=== PATIENT | male | born 1990 | race Caucasian/White ===

== ENCOUNTER 2018-12-09 09:33 | Emergency (ER) | payer BC ==
[~2018-12-09] VITALS: Ht 180.3 cm; Wt 68.0 kg
[~2018-12-09 09:33] MED LIST: ONDA8TAB6 PO
--- NOTE | 2018-12-09 09:48 | NUR ---
DARRELL LOFTON AT BEDSIDE.
[2018-12-09] MEDS ORDERED: morphine 2 MG/ML inj. syringe IV PRN (09:55)
[2018-12-09 10:00] LABS: BASOPHILS % (AUTO) 0.8 % (0-1); EOSINOPHILS % (AUTO) 0.3 % (0-6); HEMATOCRIT 49.2 % (42.0-52.0); LYMPHOCYTES # (AUTO) 1.9 X10'3 (1.1-4.8); LYMPHOCYTES % (AUTO) 32.3 % (21-51); MEAN CORPUSCULAR HEMOGLOBIN 31.1 PG (27.0-31.0); MEAN CORPUSCULAR HGB CONC 34.6 g/dL (33.0-36.5); MEAN CORPUSCULAR VOLUME 90.1 FL (78-98); MEAN PLATELET VOLUME 8.7 FL (7.4-10.4); MONOCYTES # (AUTO) 0.4 X10'3 (0-0.9); MONOCYTES % (AUTO) 6.2 % (2-12); NEUTROPHILS # (AUTO) 3.5 X10'3 (1.8-7.7); NEUTROPHILS % (AUTO) 60.4 % (42-75); PLATELET COUNT 259 X10'3 (140-440); RED BLOOD COUNT 5.47 X10'6 (4.70-6.10); RED CELL DISTRIBUTION WIDTH 12.9 % (11.5-14.5); WHITE BLOOD COUNT 5.8 X10'3 (4.5-11.0)
[2018-12-09 10:12] LABS: ALANINE AMINOTRANSFERASE 52 U/L (12-78); ALBUMIN 4.9 G/DL (3.4-5.0); ALBUMIN/GLOBULIN RATIO 1.2 (1.1-1.5); ALKALINE PHOSPHATASE 113 IU/L (46-116); ANION GAP 9 (8-16); ASPARTATE AMINO TRANSFERASE 25 U/L (10-37); BILIRUBIN,TOTAL 0.8 MG/DL (0.1-1.0); BLOOD UREA NITROGEN 18 MG/DL (7-18); BUN/CREATININE RATIO 16.1 (5.4-32.0); CALCIUM 9.7 MG/DL (8.5-10.1); CHLORIDE 105 MMOL/L (99-107); CREATININE 1.12 MG/DL (0.60-1.10); GLUCOSE 84 MG/DL (70-104); POTASSIUM 4.5 MMOL/L (3.5-5.1); SODIUM 143 MMOL/L (135-145); TOTAL PROTEIN 8.9 G/DL (6.4-8.2); eGFR 78 ML/MIN
[2018-12-09 10:18] LABS: LIPASE 147 U/L (73-393); MAGNESIUM 2.1 MG/DL (1.5-2.4)
--- NOTE | 2018-12-09 10:28 | NUR ---
PT STATES HE CANNOT GIVE URINE, HAS NOT BEEN EATING OR DRINKING MUCH, REFUSES CATH
[2018-12-09] MEDS ORDERED: mag hydrox/Alum hydrox/simeth 30ml oral suspension PO ONE (10:30)
[2018-12-09] MEDS ORDERED: LIDOcaine Viscous 15ml cup PO ONE (10:30)
--- NOTE | 2018-12-09 10:40 | NUR ---
PATIENT REFUSED MORPHINE DOSE AT THIS TIME,PAIN 7/10.
[2018-12-09 11:10] LABS: CLARITY,URINE SLIGHTLY CLOUDY (Clear); COLOR,URINE YELLOW (Yellow); GLUCOSE, URINE NEGATIVE (Neg); KETONES,URINE TRACE mg/dl (Neg); LEUKOCYTE ESTERASE ,URINE NEGATIVE (Neg); NITRITES, URINE NEGATIVE (Neg); OCCULT BLOOD,URINE NEGATIVE (Neg); PROTEIN,URINE NEGATIVE (Neg)
[2018-12-09 11:13] LABS: UA COLLECTION TYPE CLN CATCH MIDSTREAM
[2018-12-09 11:21] LABS: TRANSITIONAL EPI CELLS,URINE FEW /HPF
[2018-12-09 11:23] LABS: WBC,URINE 0-4 /HPF (0-4)
[2018-12-09 11:24] LABS: BACTERIA,URINE FEW /HPF (Neg); RBC,URINE 0-2 /HPF (0-2); SQUAMOUS EPITHELIAL CELL,UR FEW /LPF (FEW)
[2018-12-09 11:27] LABS: MUCUS STRANDS MANY /LPF (Neg)
--- NOTE | 2018-12-09 11:27 | NUR ---
PHYSICAL THERAPY ASSISTANT AT BEDSIDE.
[2018-12-09 11:31] LABS: AMORPHOUS PHOSPHATES 1+
[2018-12-09] MEDS ORDERED: OMEP40CA13 PO (11:44)
[2018-12-09 11:46] VITALS: BP 138/79
== END 2018-12-09 11:49 | disposition home or self-care (01) ==
LOC: ER 09:34
DX: R10.13 Epigastric pain (principal); R07.89 Other chest pain; R06.02 Shortness of breath; F17.200 Nicotine dependence, unspecified, uncomplicated; Z98.890 Other specified postprocedural states; Z79.899 Other long term (current) drug therapy
CPT/HCPCS: 36415; 71045; 80053; 81001; 83690; 83735; 83880; 84484; 85025; 93005; 93978; 96374; 99284; J2270

== ENCOUNTER 2020-11-21 06:50 | Emergency (ER) | payer SELFPAY ==
[~2020-11-21] VITALS: Ht 180.3 cm; Wt 70.5 kg
[2020-11-21 07:18] VITALS: BP 122/81
== END 2020-11-21 08:59 | disposition home or self-care (01) ==
LOC: ER 06:51
DX: B34.9 Viral infection, unspecified (principal); Z20.822 Contact with and (suspected) exposure to COVID-19; R05 Cough; R43.8 Other disturbances of smell and taste; F17.200 Nicotine dependence, unspecified, uncomplicated; Z98.890 Other specified postprocedural states; Z79.899 Other long term (current) drug therapy
CPT/HCPCS: 87635; 99283; C9803

== ENCOUNTER 2024-01-15 10:07 | Emergency (ER) | payer OTHER ==
[~2024-01-15] VITALS: Ht 180.3 cm; Wt 76.5 kg
[2024-01-15 10:18] VITALS: BP 120/79; PULSE 61; O2SAT 97
[2024-01-15] MEDS ORDERED: fentaNYL/PF 50MCG/1 ML 2ML syringe IV ONE (10:25)
[2024-01-15] MEDS: morphine 4 MG/ML inj SYRINge IV ONE (10:35)
[2024-01-15 11:25] LABS: BASOPHILS # (AUTO) 0.1 X10'3 (0-0.2); BASOPHILS % (AUTO) 0.8 % (0-1); EOSINOPHILS % (AUTO) 0.3 % (0-6); HEMATOCRIT 44.4 % (42.0-52.0); HEMOGLOBIN 15.1 g/dl (14.0-17.9); LYMPHOCYTES # (AUTO) 1.9 X10'3 (1.1-4.8); LYMPHOCYTES % (AUTO) 31.6 % (21-51); MEAN CORPUSCULAR HEMOGLOBIN 29.1 PG (27.0-31.0); MEAN CORPUSCULAR HGB CONC 34.1 g/dL (33.0-36.5); MEAN CORPUSCULAR VOLUME 85.3 FL (78-98); MEAN PLATELET VOLUME 8.1 FL (7.4-10.4); MONOCYTES # (AUTO) 0.3 X10'3 (0-0.9); MONOCYTES % (AUTO) 4.4 % (2-12); NEUTROPHILS # (AUTO) 3.8 X10'3 (1.8-7.7); NEUTROPHILS % (AUTO) 62.9 % (42-75); PLATELET COUNT 190 X10'3 (140-440); RED CELL DISTRIBUTION WIDTH 14.5 % (11.5-14.5); WHITE BLOOD COUNT 6.1 X10'3 (4.5-11.0)
[2024-01-15 11:34] LABS: GLUCOSE 77 MG/DL (70-104); SODIUM 140 MMOL/L (135-145)
[2024-01-15 11:35] LABS: ALANINE AMINOTRANSFERASE 69 U/L (12-78); ALBUMIN 4.1 G/DL (3.4-5.0); ALBUMIN/GLOBULIN RATIO 1.1 (1.1-1.5); ALKALINE PHOSPHATASE 130 IU/L (46-116); ANION GAP 8 (8-16); ASPARTATE AMINO TRANSFERASE 38 U/L (10-37); BILIRUBIN,TOTAL 0.9 MG/DL (0.1-1.0); BLOOD UREA NITROGEN 12 MG/DL (7-18); BUN/CREATININE RATIO 11.8 (10.0-20.0); CALCIUM 8.9 MG/DL (8.5-10.1); CHLORIDE 105 MMOL/L (99-107); CREATININE 1.02 MG/DL (0.60-1.10); POTASSIUM 3.9 MMOL/L (3.5-5.1); TOTAL CARBON DIOXIDE 27.5 MMOL/L (24-32); TOTAL PROTEIN 7.9 G/DL (6.4-8.2); eCRCL 109 ML/MIN; eGFR 84 ML/MIN
[2024-01-15 13:05] VITALS: RESP 18
[2024-01-15] MEDS: ketorolac trometh 15mg/ml vial 15 MG/ML ML IV ONE (13:05)
[2024-01-15 13:29] LABS: BILIRUBIN,URINE NEGATIVE (Neg); CLARITY,URINE CLEAR (Clear); COLOR,URINE YELLOW (Yellow); GLUCOSE, URINE NEGATIVE (Neg); KETONES,URINE NEGATIVE (Neg); LEUKOCYTE ESTERASE ,URINE NEGATIVE (Neg); NITRITES, URINE NEGATIVE (Neg); OCCULT BLOOD,URINE NEGATIVE (Neg); PROTEIN,URINE NEGATIVE (Neg); UROBILINOGEN,URINE 0.2 E.U/dL (0.2-1.0)
[2024-01-15 13:42] LABS: UA COLLECTION TYPE CLN CATCH MIDSTREAM
== END 2024-01-15 14:13 | disposition home or self-care (01) ==
LOC: ER 10:07
DX: S39.011A Strain of muscle, fascia and tendon of abdomen, initial encounter (principal); R10.31 Right lower quadrant pain; Z79.899 Other long term (current) drug therapy; Z98.890 Other specified postprocedural states; X58.XXXA Exposure to other specified factors, initial encounter; Y93.89 Activity, other specified; Y92.89 Other specified places as the place of occurrence of the external cause; Y99.8 Other external cause status
CPT/HCPCS: 36415; 74176; 76870; 80053; 81003; 83605; 85025; 96374; 99285; J1885; J7030